=== PATIENT | female | born 1955 | race Caucasian/White ===

== ENCOUNTER 2017-02-22 09:26 | Inpatient (IN) | payer MEDICARE ==
[~2017-02-22] VITALS: Ht 167.6 cm; Wt 101.5 kg
[2017-02-22] VITALS (8 sets, daily range): BP systolic 129–195; BP diastolic 61–81; PULSE 60–68; RESP 16–18; TEMP 97.2; O2SAT 96–99
[~2017-02-22 09:26] MED LIST: AMLO10 PO; ASPI81TA82 PO; CARV3.125 PO; CLOP75 PO; LEVE500 PO; ROSU40 PO; ZANTTAB9 PO
[2017-02-22] MEDS ORDERED: PLAV75TA29 PO (09:32)
[2017-02-22] MEDS ORDERED: LEVE250 PO (09:32)
[2017-02-22] MEDS ORDERED: ROSU40 PO (09:32)
[2017-02-22] MEDS ORDERED: ASPI81CH37 CHEW (09:32)
[2017-02-22] MEDS ORDERED: SODIUM CHLOR 0.9% 1000 ML INJ 1,000 ML IV ONE (09:32)
[2017-02-22] MEDS ORDERED: LEVE500 PO (09:32)
[2017-02-22] MEDS ORDERED: AMLO10 PO (09:32)
[2017-02-22] MEDS ORDERED: CARV3.12 PO (09:32)
[2017-02-22] MEDS ORDERED: RANI1TAB5 PO (09:32)
--- NOTE | 2017-02-22 09:46 | PD ---
HPI Chief Complaint: Stroke Alert Time Seen by Provider: 09:32 Travel History International Travel<30 days: No Contact w/Intl Traveler<30days: No Traveled to known affect area: No History of Present Illness HPI This patient is brought in as a stroke alert. At 9 AM she developed some numbness in the left side of her face. It includes the area of the cheek trending down toward the chin. There is no involvement of the forehead. No muscle weakness anywhere. No sensory loss other than the face and left side of the tongue. She did develop some slowness and slurring of speech but that is significantly improved upon arrival which is approximately half hour after symptoms started. She had a small stroke in 2013 which presented the exact same symptoms including left-sided facial numbness and speech difficulty. She has a minor chronic residual left-sided facial droop from that stroke which is unchanged today. She takes Plavix daily which she took this morning. Symptoms of mild to moderate severity. No alleviating factors. Duration 30 minutes PFSH Past Medical History Arthritis: Yes (R - shoulder) Asthma: No Autoimmune Disease: No Anxiety: Yes Depression: No Heart Rhythm Problems: No Cancer: No Cardiac Catheterization: No Cardiovascular Problems: Yes High Cholesterol: Yes Chest Pain: No Congestive Heart Failure: No COPD: No Cerebrovascular Accident: Yes (Mini stroke October 2014) Coronary Artery Disease: Yes Diabetes: No Endocrine: No Gastrointestinal Disorders: Yes GERD: Yes Genitourinary: Yes Headaches: Yes Hepatitis: No Hiatal Hernia: Yes Hypertension: Yes Immune Disorder: No Implanted Vascular Access Dvce: Yes Kidney Stones: No Medical other: Yes (ARTHRITIS) Musculoskeletal: Yes (Right shoulder fracture) Neurologic: Yes Psychiatric: No Reproductive: No Respiratory: Yes Immunizations Current: Yes Migraines: No Renal Failure: No Seizures: No Sleep Apnea: No Thyroid Disease: No Ulcer: No Menopausal: Yes Past Surgical History Abdominal Surgery: Yes (Gallbladder removed 2006) AICD: No Arteriovenous Shunt: No Body Medical Devices: Cardiac Stent placed by Dr. Shi in 2013 Cardiac Surgery: Yes (Stent placement in May 2014) Cholecystectomy: Yes Coronary Artery Bypass Graft: No Coronary Stent: Yes (BILATERAL ILIAC ARTERY STENT & 05/2014) Ear Surgery: No Endocrine Surgery: No Eye Surgery: No Genitourinary Surgery: No Gynecologic Surgery: Yes (Hysterectomy 2001) Hysterectomy: Yes Insulin Pump: No Joint Replacement: No Oral Surgery: No Pacemaker: No Thoracic Surgery: No Other Surgery: Yes Family History Family Myocardial Infarction: Yes Social History Alcohol Use: Yes (very rare) Tobacco Use: No (QUIT MAY 2007) Substance Use: No Allergies-Medications (Allergen,Severity, Reaction): Coded Allergies: No Known Allergies (Verified , 02/11/15) Reported Meds & Prescriptions Reported Meds & Active Scripts Active Reported Ranitidine 75 (Ranitidine HCl) 75 Mg Tab 75 Mg PO DAILY Take 30 to 60 minutes before eating food or drinking beverages that cause heartburn. Aspirin Low Dose (Aspirin) 81 Mg Chew 81 Mg CHEW DAILY Crestor (Rosuvastatin Calcium) 40 Mg Tab 40 Mg PO DAILY Keppra (Levetiracetam) 500 Mg Tab 500 Mg PO HS Keppra (Levetiracetam) 250 Mg Tab 250 Mg PO MORNING Norvasc (Amlodipine Besylate) 10 Mg Tab 10 Mg PO DAILY Carvedilol 3.125 Mg Tab 3.125 Mg PO BID Plavix (Clopidogrel Bisulfate) 75 Mg Tab 75 Mg PO DAILY Review of Systems General / Constitutional: No: Fever Eyes: No: Visual changes HENT: No: Headaches Cardiovascular: No: Chest Pain or Discomfort Respiratory: No: Shortness of Breath Gastrointestinal: No: Abdominal Pain Genitourinary: No: Dysuria Musculoskeletal: No: Pain Skin: No Rash Neurologic: Positive: Slurred Speech, Sensory Disturbance, No: Weakness Psychiatric: No: Depression Endocrine: No: Polydipsia Hematologic/Lymphatic: No: Easy Bruising Physical Exam Narrative GENERAL: Well-nourished, well-developed patient in no apparent distress. SKIN: Warm and dry. HEAD: Atraumatic. Normocephalic. EYES: Pupils equal and round. No scleral icterus. No injection or drainage. ENT: No nasal bleeding or discharge. Mucous membranes pink and moist. NECK: Trachea midline. No JVD. CARDIOVASCULAR: Regular rate and rhythm. No murmur appreciated. RESPIRATORY: No accessory muscle use. Clear to auscultation. Breath sounds equal bilaterally. GASTROINTESTINAL: Abdomen soft, non-tender, nondistended. Hepatic and splenic margins not palpable. MUSCULOSKELETAL: No obvious deformities. No clubbing. No cyanosis. No edema. NEUROLOGICAL: Awake and alert. No obvious cranial nerve deficits. Motor grossly within normal limits. Speech is not slurred and is understandable but seems to be slowed. There is a very minor subtle left-sided facial droop which the patient reports is chronic. Mental status is normal. She has subjective diminished sensation to sharp and light touch in the left cheek and left chin area. Normal sensation in the extremities. PSYCHIATRIC: Appropriate mood and affect; insight and judgment normal. Data Data Last Documented VS Vital Signs Date Time Temp Pulse Resp B/P Pulse Ox O2 Delivery O2 Flow Rate FiO2 02/22/17 12:00 66 18 154/69 98 Nasal Cannula 2 Orders Diet Npo (02/22/17 Breakfast) Activity Bed Rest (02/22/17 ) Electrocardiogram (02/22/17 ) I-Stat Creatinine (02/22/17 09:32) I-Stat Profile (02/22/17 09:32) Prothrombin Time / Inr (Pt) (02/22/17 09:32) Act Partial Throm Time (Ptt) (02/22/17 09:32) Complete Blood Count With Diff (02/22/17 09:32) Fibrinogen (02/22/17 09:32) Drug Screen, Random Urine (02/22/17 09:32) Ct Brain W/O Iv Contrast(Rout) (02/22/17 ) Cta Brain W Iv Contrast W 3d (02/22/17 09:32) Cta Neck W Iv Contrast W 3d (02/22/17 09:32) Consult Neurology (02/22/17 ) Ecg Monitoring (02/22/17 09:32) Neuro Checks Q2HX12,Q4H (02/22/17 09:32) Nursing Bedside Swallow Assess .ONCE (02/22/17 09:32) Iv Access Insert/Monitor (02/22/17 09:32) NPO (02/22/17 09:32) Oximetry (02/22/17 09:32) Oxygen Administration (02/22/17 09:32) Sodium Chlor 0.9% 1000 Ml Inj (Ns 1000 M (02/22/17 09:32) Resp Oxygen Juan C Titrat 1-4 L (02/22/17 09:32) Iohexol 350 Inj (Omnipaque 350 Inj) (02/22/17 09:58) Dipyridamole-Aspirin 200-25 Mg (Aggrenox (02/22/17 21:00) Aspirin Ec (Ecotrin Ec) (02/23/17 09:00) Acetaminophen (Tylenol) (02/22/17 11:30) Aspirin (Aspirin) (02/22/17 11:30) Heparin Inj (Heparin Inj) (02/22/17 14:00) Eeg Study (02/22/17 ) Mri Brain W/O Contrast (02/22/17 ) Scd Bilateral/Knee High KYLAH.QSHIFT (02/22/17 11:25) Inspector Optical Instrument / Telemetry KYLAH.Q8H (02/22/17 11:25) ^ Fall Precautions (02/22/17 11:25) Neuro Checks . ORDERED (02/22/17 11:25) Consult Pt Eval & Tx Oob (02/22/17 11:25) Echo 2d Comp W/Dopp(Routine) (02/22/17 ) Anti-Thrombin, Functional (02/22/17 11:25) Activated Protein C Resistance (02/22/17 11:25) Factor V (5) Mutation (Leiden) (02/22/17 11:25) Prothrombin [id number] Mutation (02/22/17 11:25) Homocysteine (02/22/17 11:25) Beta-2 Glycoprotein (Gpi) Abs (02/22/17 11:25) Mthr Genotype (02/22/17 11:25) Lupus Anticoagulant Drvvt (02/22/17 11:25) Cardiolipin Abs Igg,Igm,Iga (02/22/17 11:25) Protein C Activity (02/22/17 11:25) Protein S Activity (02/22/17 11:25) Factor Viii (8) Activity Ref (02/22/17 11:25) Phosphatidylserine Abs (02/22/17 11:25) Levetiracetam (02/22/17 11:25) Lipid Profile (02/22/17 11:25) Hemoglobin (Hgb) A1c (02/22/17 11:25) (Hub Use Only)Inp Phy Cons/Ref (02/22/17 ) Diet Heart Healthy (02/22/17 Lunch) Head Of Bed (02/22/17 13:21) ^Bedside Commode (02/22/17 13:21) Admit Order (Ed Use Only) (02/22/17 13:39) Labs Laboratory Tests Test 02/22/17 09:30 White Blood Count 8.1 TH/MM3 Red Blood Count 5.03 MIL/MM3 Hemoglobin 15.1 GM/DL Bedside Hemoglobin 14.6 G/DL Hematocrit 42.8 % Bedside Hematocrit 43.0 % Mean Corpuscular Volume 85.1 FL Mean Corpuscular Hemoglobin 30.0 PG Mean Corpuscular Hemoglobin 35.2 % Concent Red Cell Distribution Width 12.9 % Platelet Count 166 TH/MM3 Mean Platelet Volume 9.5 FL Neutrophils (%) (Auto) 68.8 % Lymphocytes (%) (Auto) 15.7 % Monocytes (%) (Auto) 9.8 % Eosinophils (%) (Auto) 4.7 % Basophils (%) (Auto) 1.0 % Neutrophils # (Auto) 5.6 TH/MM3 Lymphocytes # (Auto) 1.3 TH/MM3 Monocytes # (Auto) 0.8 TH/MM3 Eosinophils # (Auto) 0.4 TH/MM3 Basophils # (Auto) 0.1 TH/MM3 CBC Comment DIFF FINAL Differential Comment Prothrombin Time 9.9 SEC Prothromb Time International 0.9 RATIO Ratio Activated Partial 24.5 SEC Thromboplast Time Fibrinogen 308 mg/dL Bedside Sodium 141 MMOL/L Bedside Potassium 4.3 MMOL/L Bedside Chloride 110 MMOL/L Bedside Blood Urea Nitrogen 18 MG/DL Bedside Creatinine 0.8 MG/DL Bedside Glucose 120 MG/DL [facility] Medical Screen Exam Complete: Yes Emergency Medical Condition: Yes Medical Record Reviewed: Yes Differential Diagnosis Ischemic CVA, hemorrhagic CVA, TIA Narrative Course I have reviewed the patient's electronic medical record. I've initiated stroke alert protocol. I reviewed with the patient's neurologist Brain CT is negative for hemorrhage CT of head and neck are negative for hemodynamically significant blockage CBC normal Metabolic profile normal Coagulation studies are normal Patient is in a sinus rhythm on EKG Extended cardiac monitoring reveals sinus rhythm without ectopy I reviewed in detail with hospitalist will admit with consultation to neurologist Brain MRI has been ordered Patient's blood pressure is 180 systolic and will be observed closely but nontreated given likelihood of acute ischemic stroke Critical Care Narrative Aggregate critical care time was 40 minutes. Time to perform other separately billable procedures was not included in the critical care time. My time did not include minutes spent treating any other patients simultaneously or on activities that did not directly contribute to the patient's treatment. The services I provided to this patient were to treat and/or prevent clinically significant deterioration that could result in: Permanent neurologic disability , brain stem herniation, intracranial hemorrhage I provided critical care services requiring my management, as noted below: Chart data review, documentation time, medication orders and management, vital sign assessments/reviewing monitor data, ordering and reviewing lab tests, ordering and interpreting/reviewing x-rays and diagnostic studies, care of the patient and discussion of the patient with the admitting physicians. Stroke Alert NIHSS NIH Stroke Scale Result: 2 NIHSS Time Completed: 09:30 Thrombolytic Contraindications Contraindications Comment: Patient is not a TPA candidate due to symptoms are rapidly improving, she is already improved within 30 minutes of symptom onset. Neurologist concurs Diagnosis Diagnosis: Primary Impression: Acute ischemic right MCA stroke Admitting Physician Requests: Admit Korey Henry MD Feb 22, 2017 09:46 Korey Henry MD Feb 22, 2017 09:46
[2017-02-22 09:54] LABS: AUTOMATED NEUTROPHIL # 5.6 TH/MM3 (1.8-7.7); BASOPHIL # 0.1 TH/MM3 (0-0.2); EOSINOPHIL # 0.4 TH/MM3 (0-0.4); EOSINOPHIL % 4.7 % (0.0-4.0); HEMATOCRIT 42.8 % (35.0-46.0); HEMO FLAGS DIFF FINAL; I-STAT POTASSIUM 4.3 MMOL/L (3.5-4.9); LYMPH % 15.7 % (9.0-44.0); LYMPHOCYTE # 1.3 TH/MM3 (1.0-4.8); MEAN CELL VOLUME 85.1 FL (80.0-100.0); MEAN CORPUSCULAR HGB CONC 35.2 % (32.0-36.0); MONO % 9.8 % (0.0-8.0); NEUT % 68.8 % (16.0-70.0); PLATELET COUNT 166 TH/MM3 (150-450); RED BLOOD COUNT 5.03 MIL/MM3 (4.00-5.30); RED CELL DISTRIBUTION WIDTH 12.9 % (11.6-17.2); WHITE BLOOD COUNT 8.1 TH/MM3 (4.0-11.0)
[2017-02-22] MEDS ORDERED: IOHEXOL 350 MG/ML 10 ML VIAL (for RAD DIAG) IV ONE (09:58)
--- NOTE | 2017-02-22 10:03 | RADRPT ---
EXAM DATE/TIME: 02/22/2017 09:47 [facility] COMPARISON: CT BRAIN W/O CONTRAST, February 11, 2015, 15:48. INDICATIONS : Stroke alert; left sided facial numbness. RADIATION DOSE: 56.35 CTDIvol (mGy) MEDICAL HISTORY : Stroke. SURGICAL HISTORY : None. ENCOUNTER: Initial ACUITY: 1 day PAIN SCALE: 0/10 LOCATION: cranial TECHNIQUE: Multiple contiguous axial images were obtained of the head. Using automated exposure control and adj ustment of the mA and/or kV according to patient size, radiation dose was kept as low as reasonably a chievable to obtain optimal diagnostic quality images. FINDINGS: CEREBRUM: The ventricles are normal for age. No evidence of midline shift, mass lesion, hemorrhage or acute in farction. No extra-axial fluid collections are seen. POSTERIOR FOSSA: The cerebellum and brainstem are intact. The 4th ventricle is midline. The cerebellopontine angle i s unremarkable. EXTRACRANIAL: The visualized portion of the orbits is intact. SKULL: The calvaria is intact. No evidence of skull fracture. CONCLUSION: Normal exam. Results were relayed to the ER at 10:01 AM. Sierra Zarate MD on February 22, 2017 at 9:57 Board Certified Radiologist. This report was verified electronically.
[2017-02-22 10:05] LABS: APTT (PATIENT) 24.5 SEC (24.3-30.1); INTERNATIONAL NORMALIZED RATIO 0.9 RATIO; PROTHROMBIN TIME - PATIENT 9.9 SEC (9.8-11.6)
--- NOTE | 2017-02-22 10:29 | RADRPT ---
EXAM DATE/TIME: 02/22/2017 09:47 [facility] COMPARISON: CTA BRAIN W 3D RECON, October 30, 2014, 20:44. INDICATIONS : Stroke alert; left sided facial numbness. IV CONTRAST: 60 cc Omnipaque 350 (iohexol) IV ; Cumulative dose for multiple exams. RADIATION DOSE: 15.02 CTDIvol (mGy) ; Combined studies MEDICAL HISTORY : Stroke. SURGICAL HISTORY : None. ENCOUNTER: Initial ACUITY: 1 day PAIN SCALE: 0/10 LOCATION: cranial TECHNIQUE: Volumetric scanning was performed using a multi-row detector CT scanner. The data was post processed with a variety of visualization algorithms including full volume maximum intensity projection, multi -planar sliding thin slab reformation, curved planar reformation, and surface rendering techniques. Using automated exposure control and adjustment of the mA and/or kV according to patient size, radiat ion dose was kept as low as reasonably achievable to obtain optimal diagnostic quality images. FINDINGS: There is excellent visualization of the major intracranial arteries out to the second-order branch ve ssels. There is no evidence for aneurysm, vessel truncation or stenosis, and no evidence for vascula r malformation. The imaged portion of the brain is unremarkable. CONCLUSION: Normal CTA without evidence of thrombosis.. Sierra Zarate MD on February 22, 2017 at 10:25 Board Certified Radiologist. This report was verified electronically.
--- NOTE | 2017-02-22 10:33 | PD.CONS ---
History of Present Illness Service Neurology Consult Requested By er Reason for Consult stroke alert Primary Care Physician Sammi Galloway Jr, MD History of Present Illness 61-year-old female presents to er as a stroke alert. was doing laundry when suddenly her left face became numb and her speech became more thick. she felt her tongue was heavy. this has improved and she is minimal tingling on her left face. no limb involvement. no shaking. she is able to converse. we discussed iv tpa and both agree that based on her minimal symptoms, this tx shoudl be deferred. she is on plavix. on keppra as well and has been compliant with medications. bp 1195/81. had small rt cortical stroke 10/2014. ct brain negative. glucose 120 Past Family Social History Past Medical History Hypertension Hyperlipidemia CADstatus post LAD stent on 06/07/14. EF 60% on angiogram Severe PADstatus post bilateral iliac artery stents in 2006 Osteoarthritis GERD Recent fall on 07/08/14 with right shoulder and right ankle sprain Past Surgical History Right shoulder surgery next line carpal tunnel surgery Hysterectomy Cholecystectomy Bilateral iliac artery stenting Coronary angiogram and stenting Reported Medications Patient's medications listed in EMR reviewed. Allergies: Coded Allergies: No Known Allergies (Verified , 07/27/14) Social History Reports long-standing history of tobacco use. She states she quit in 2006. Denies any alcohol abuse or drug abuse. Review of Systems as per med/er hp Review of Systems Constitutional: Negative Eye: Negative Respiratory: Negative Cardiovascular: Negative Gastrointestinal: Negative Psychiatric: Negative All other ROS: ROS reviewed as documented in chart Past Family Social History Allergies: Coded Allergies: No Known Allergies (Verified , 02/11/15) Active Ordered Medications Current Medications Medications (Trade) Dose Ordered Sig/Pankaj Route Start Time Stop Time Status Last Admin (NS 1000 ml Inj) 1,000 ml @ 70 mls/hr [id number] ONCE IV 02/22/17 09:32 02/22/17 23:49 02/22/17 09:55 Exam I&O / VS Vital Signs Date Time Temp Pulse Resp B/P Pulse Ox O2 Delivery O2 Flow Rate FiO2 02/22/17 09:48 97 Nasal Cannula 2 02/22/17 09:30 98 Nasal Cannula 4.00 02/22/17 09:30 98 4.00 02/22/17 09:27 68 16 195/81 97 General: Alert and Oriented, No acute distress Eye: PERRL, EOMI Respiratory: Lungs CTA Cardiology: Normal rate Musculoskeletal: ROM Neurologic: Alert, Oriented, Normal motor, Gag reflex normal, Normal DTR's Psychiatric: Cooperative, Appropriate mood & affect, Normal judgement Exam Comments alert, ox 3. clear speech, follows. eomi, vff, no ptosis, tongue midline, mild reduced pin v2,3 on left compared to rt. minimal reduced left nlf on left compared to rt, but may be residual from previous stroke, no motor weakness, no drift, no limb sensory symptoms, no neglect, nihss 1 Review/Management Diagnosis/Plan: (1) TIA (transient ischemic attack) Plan: possible recurrent rt mca tia; ? 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
--- NOTE | 2017-02-22 10:48 | RADRPT ---
EXAM DATE/TIME: 02/22/2017 09:47 [facility] COMPARISON: CTA CAROTID ARTERIES W 3D RECON, October 30, 2014, 20:44. INDICATIONS : Stroke alert; left sided facial numbness. IV CONTRAST: 60 cc Omnipaque 350 (iohexol) IV ; Cumulative dose for multiple exams. RADIATION DOSE: 15.02 CTDIvol (mGy) ; Combined studies MEDICAL HISTORY : Stroke. SURGICAL HISTORY : None. ENCOUNTER: Initial ACUITY: 1 day PAIN SCALE: 0/10 LOCATION: Bilateral neck Elevated flow velocities and ICA/CCA ratios have been found to correlate with increased degrees of vessel stenosis, calculated as percentage of diameter relative to a normal segment of distal ICA/CCA. TECHNIQUE: Volumetric scanning was performed using a multirow detector CT scanner. The data was post processed with a variety of visualization algorithms including full-volume maximum intensity projection, multip lanar sliding thin-slab reformation, curved-planar reformation, and surface-rendering techniques. Us ing automated exposure control and adjustment of the mA and/or kV according to patient size, radiatio n dose was kept as low as reasonably achievable to obtain optimal diagnostic quality images. FINDINGS: AORTIC ARCH: There is a 4-vessel origin of the great vessels from the aorta with the left vertebral artery also ar ising from the aorta. There is atherosclerotic calcified plaque present at the origin of the great ve ssels without evidence of significant ostial narrowing. RIGHT CAROTID: The common carotid artery is intact. The carotid bulb has a normal configuration without significant ulceration or narrowing. The internal carotid artery lumen is smooth without stenosis. The external carotid artery is intact. LEFT CAROTID: The common carotid artery is intact. The carotid bulb has a normal configuration without significant ulceration or narrowing. The internal carotid artery lumen is smooth without stenosis. The externa l carotid artery is intact. VERTEBRALS: The vertebral arteries have a symmetric diameter. No stenotic lesions are seen. CONCLUSION: There is a 4 vessel present with the left vertebral artery arising from the aortic arch. There is ath erosclerotic plaque identified at the origins of the great vessels without evidence of significant na rrowing. Calcified plaque is also noted at the bilateral carotid artery bifurcation without evidence of significant narrowing. The vasculature demonstrates otherwise normal caliber without evidence of s tenosis or dissection.. Sierra Zarate MD on February 22, 2017 at 10:42 Board Certified Radiologist. This report was verified electronically.
[2017-02-22] MEDS ORDERED: ASPIRIN 325 MG TAB PO SCH (11:30)
[2017-02-22] MEDS: ACETAMINOPHEN 500 MG CPLT PO SCH ×2 (12:56→21:01)
--- NOTE | 2017-02-22 13:49 | RADRPT ---
EXAM DATE/TIME: 02/22/2017 13:20 [facility] COMPARISON: MRI BRAIN W/O CONTRAST, February 11, 2015, 16:49. INDICATIONS : CVA. Stroke alert; left sided facial numbness. MEDICAL HISTORY : Hypertension. SURGICAL HISTORY : Cholecystectomy. Hysterectomy. Carpal tunnel syndrome. ENCOUNTER: Initial ACUITY: 1 day PAIN SCORE: 0/10 LOCATION: cranial TECHNIQUE: Multiplanar, multisequence MRI of the brain was performed without contrast. FINDINGS: CEREBRUM: The ventricles are normal for age. No evidence of midline shift, mass lesion, hemorrhage or acute in farction. No extraaxial fluid collections are seen. The pituitary gland and suprasellar cistern are normal in configuration. WHITE MATTER: Stable foci of increased T2 signal identified within the white matter of the centrum semiovale bilate rally. These are nonspecific and not related to acute infarct. POSTERIOR FOSSA: The cerebellum and brainstem are intact. The 4th ventricle is midline. The cerebellopontine angle is unremarkable. The cerebellar tonsils are normal in position. DIFFUSION IMAGING: No focal areas of restricted diffusion are seen. No evidence of acute infarction. EXTRACRANIAL: The visualized portions of the orbits and paranasal sinuses are unremarkable. CONCLUSION: No acute disease. Sierra Zarate MD on February 22, 2017 at 13:45 Board Certified Radiologist. This report was verified electronically.
--- NOTE | 2017-02-22 14:55 | HHI.HP ---
HPI Service [facility] Hospitalists Primary Care Physician Sammi Galloway Jr, MD Admission Diagnosis tia Chief Complaint: dysarthria Travel History International Travel<30 Days: No Contact w/Intl Traveler <30 Da: No Traveled to Known Affected Are: No History of Present Illness Pt presents with dysarthria and c/o left facial parasthesia while doing her laundry. Similar events occured 2 yrs ago and she also had facial droop per pt. she has been on asa/ plavix for presumed tia. She was seen today by neurology for concern of right mca stroke sx's but no tpa ordered as her symptoms were resolving in ED. no focal limb weakness. no cp or sob. imaging in ED negative for stroke or significant vessel occlusion. Review of Systems Other left face parasthesia dysarthria Past Family Social History Past Medical History CADs lad stent 2013 tia PAD with jorge iliac stents oa htn hyperlipidemia GERD Right shoulder surgery/impingement Hysterectomy Cholecystectomy Bilateral iliac artery stenting Reported Medications Ranitidine 75 (Ranitidine HCl) 75 Mg Tab 75 Mg PO DAILY Take 30 to 60 minutes before eating food or drinking beverages that cause heartburn. Aspirin Low Dose (Aspirin) 81 Mg Chew 81 Mg CHEW DAILY Crestor (Rosuvastatin Calcium) 40 Mg Tab 40 Mg PO DAILY Keppra (Levetiracetam) 500 Mg Tab 500 Mg PO HS Keppra (Levetiracetam) 250 Mg Tab 250 Mg PO MORNING Norvasc (Amlodipine Besylate) 10 Mg Tab 10 Mg PO DAILY Carvedilol 3.125 Mg Tab 3.125 Mg PO BID Allergies: Coded Allergies: No Known Allergies (Verified , 02/11/15) Family History nc Social History no etoh stopped using 2ppd tob 2006 Physical Exam Vital Signs oriented distant turbulence to flows sounds jorge carotids heart reg lung abd s/nt ext no edema neuro. no focal limb weakness no facial droop. no dysarthria Vital Signs Date Time Temp Pulse Resp B/P Pulse Ox O2 Delivery O2 Flow Rate FiO2 02/22/17 14:11 18 02/22/17 13:08 61 18 157/71 97 Nasal Cannula 2 02/22/17 12:00 66 18 154/69 98 Nasal Cannula 2 02/22/17 11:05 60 18 165/69 99 Nasal Cannula 2 02/22/17 09:48 97 Nasal Cannula 2 02/22/17 09:30 98 Nasal Cannula 4.00 02/22/17 09:30 98 4.00 02/22/17 09:27 68 16 195/81 97 Laboratory Laboratory Tests Test 02/22/17 09:30 White Blood Count 8.1 Red Blood Count 5.03 Hemoglobin 15.1 Bedside Hemoglobin 14.6 Hematocrit 42.8 Bedside Hematocrit 43.0 Mean Corpuscular Volume 85.1 Mean Corpuscular Hemoglobin 30.0 Mean Corpuscular Hemoglobin 35.2 Concent Red Cell Distribution Width 12.9 Platelet Count 166 Mean Platelet Volume 9.5 Neutrophils (%) (Auto) 68.8 Lymphocytes (%) (Auto) 15.7 Monocytes (%) (Auto) 9.8 Eosinophils (%) (Auto) 4.7 Basophils (%) (Auto) 1.0 Neutrophils # (Auto) 5.6 Lymphocytes # (Auto) 1.3 Monocytes # (Auto) 0.8 Eosinophils # (Auto) 0.4 Basophils # (Auto) 0.1 CBC Comment DIFF FINAL Differential Comment Prothrombin Time 9.9 Prothromb Time International 0.9 Ratio Activated Partial 24.5 Thromboplast Time Fibrinogen 308 Bedside Sodium 141 Bedside Potassium 4.3 Bedside Chloride 110 Bedside Blood Urea Nitrogen 18 Bedside Creatinine 0.8 Bedside Glucose 120 Result Diagram: 02/22/17 0930 Assessment and Plan Problem List: (1) TIA (transient ischemic attack) Status: Acute Plan: Pt presented with left face parasthesias and dysarthria. similar sx's 2 yrs ago. She is felt to have TIA and her sx's are resolving. so far ct and mri imagin show no infarcts or vessel occlusion. discussed with dr Scott observe overnight hob flat ok to treat htn convert plavix to aggrenox he ordered hypercoag panel and will f/u office. if stable then d/c tomorrow telementry. holter in past neg for afib (2) Hypertension Status: Chronic (3) CAD (coronary artery disease) Status: Chronic (4) PAD (peripheral artery disease) Status: Chronic Physician Certification 2 Midnight Certification Type: Admission for Inpatient Services Order for Inpatient Services 2The services are ordered in accordance with Medicare regulations or non- Medicare payer requirements, as applicable. In the case of services not specified as inpatient-only, they are appropriately provided as inpatient services in accordance with the 2-midnight benchmark. Estimated LOS (days): 2 2 days is the estimated time the patient will need to remain in the hospital, assuming treatment plan goals are met and no additional complications. Post-Hospital Plan: Home Problem Qualifiers (1) TIA (transient ischemic attack): Qualified Code: G45.9 - Transient cerebral ischemia, unspecified type (2) Hypertension: Qualified Code: I10 - Essential hypertension Jonathan Pepe MD Feb 22, 2017 14:54
[2017-02-22] MEDS ORDERED: cloNIDine HCL 0.1 MG TAB PO PRN (15:00)
[2017-02-22] MEDS: HEPARIN SODIUM - SQ 10,000 UNITS/ML VIAL SQ SCH ×3 (16:18→21:06)
--- NOTE | 2017-02-22 16:23 | EKG ---
Date Performed: 02/22/2017 Time Performed: 10:10:31 PTAGE: 61 years EKG: SINUS BRADYCARDIA Since previous tracing, no significant change noted BORDERLINE ECG PREVIOUS TRACING : 02/11/2015 15.59 DOCTOR: Lenny Harper Interpretating Date/Time 02/22/2017 16:22:14
[2017-02-22 19:56] LABS: LDL CHOLESTEROL 54 MG/DL (0-99)
[2017-02-22] MEDS ORDERED: levETIRAcetam 500 MG TAB PO SCH (21:00)
[2017-02-22] MEDS: DIPYRIDAMOLE/ASPIRIN 200 MG/25 MG CAP PO SCH (21:00)
[2017-02-22] MEDS: CARVEDILOL 3.125 MG TAB PO SCH (21:01)
[2017-02-22 23:05] LABS: AMPHETAMINE, URINE NEG (NEG); BARBITURATES, URINE NEG (NEG); COCAINE, URINE NEG (NEG)
[2017-02-23 00:40] VITALS: BP 150/72; PULSE 64; RESP 18; TEMP 98.8; O2SAT 97
--- NOTE | 2017-02-23 04:13 | MG ---
cc: MARIANNE PANDA MD Sex: F DATE OF STUDY: 02/22/2017 [id number] DATE OF : 1955 HISTORY: 61 year-old female, slurred speech, left facial numbness, previous history of stroke. Posterior rhythm demonstrates 8-9 Hz activity, 10-30 microvolts low amplitude in beta and frontal channels. At times sharp transient T4, epoch 91. Attenuation shows mild slowing suggestive of drowsy state. Reasonable driving with photic stimulation. Single EKG showing sinus rhythm. INTERPRETATION Normal awake drowsy EEG. Clinical correlation. Marianne Panda MD MG/WILY /10:59 PM /3:51 AM
[2017-02-23 06:00] VITALS: BP 134/63; PULSE 62; RESP 16; TEMP 97.2; O2SAT 96
[2017-02-23] MEDS: HEPARIN SODIUM - SQ 10,000 UNITS/ML VIAL SQ SCH (06:00)
[2017-02-23 08:12] VITALS: BP 145/61; PULSE 63; RESP 17; TEMP 97.5; O2SAT 97
[2017-02-23] MEDS: ACETAMINOPHEN 500 MG CPLT PO SCH (08:41)
[2017-02-23] MEDS: CARVEDILOL 3.125 MG TAB PO SCH (08:41)
[2017-02-23] MEDS: DIPYRIDAMOLE/ASPIRIN 200 MG/25 MG CAP PO SCH (08:41)
[2017-02-23] MEDS ORDERED: levETIRAcetam 250 MG TAB PO SCH (09:00)
[2017-02-23] MEDS ORDERED: FAMOTIDINE 20 MG TAB PO SCH (09:00)
[2017-02-23] MEDS ORDERED: ASPIRIN EC 81 MG TABEC PO SCH (09:00)
[2017-02-23] MEDS ORDERED: ATORVASTATIN 80 MG TAB PO SCH (09:00)
--- NOTE | 2017-02-23 10:24 | HHI.PR ---
Review/Management Diagnosis/Plan: (1) TIA (transient ischemic attack) Plan: possible recurrent rt mca tia; ? 2/[address] brain stable; cta brain stable recs mri brain - no acute stroke cta brain/carotid- calcific dz but no significant stenosis continue aggrenox bid + aspirin 81mg p.t./tele d/c planning today; f/u with us in 3-4 weeks; reviewed mri/cta's with pt/spouse f/u hypercoag panel if left face continues to stay numb she will contact us and may repeat a mri brain thin cuts brainstem (2) Chronic right arterial ischemic stroke, MCA (middle cerebral artery) (3) Seizure Plan: on keppra eeg stable (4) Hypertension (5) Dyslipidemia Subjective Subjective Comments No acute events reported No headache; mild left facial numbness persists; she noticed a little drool out of the left corner of her mouth No chest pain No dyspnea Active Medications Current Medications Medications (Trade) Dose Ordered Sig/Pankaj Route Start Time Stop Time Status Last Admin (Aggrenox 200-25 Mg) 1 cap BID PO 02/22/17 21:00 02/23/17 08:41 (Ecotrin Ec) 81 mg DAILY PO 02/23/17 09:00 02/23/17 08:41 (Tylenol) 500 mg BID PO 02/22/17 11:30 02/23/17 08:41 (Heparin Inj) 5,000 units Q8HR SQ 02/22/17 14:00 02/22/17 16:18 (Norvasc) 10 mg DAILY PO 02/23/17 09:00 02/23/17 08:41 (Coreg) 3.125 mg BID PO 02/22/17 21:00 02/23/17 08:41 (Keppra) 250 mg DAILY PO 02/23/17 09:00 02/23/17 08:41 (Keppra) 500 mg HS PO 02/22/17 21:00 02/22/17 21:01 (Pepcid) 20 mg BID PO 02/23/17 09:00 02/23/17 08:41 (Lipitor) 80 mg DAILY PO 02/23/17 09:00 02/23/17 09:11 (Catapres) 0.1 mg Q4H PRN PO 02/22/17 15:00 Allergies Allergies Coded Allergies No Known Allergies (Verified02/11/15) Review of Systems Constitutional: Negative Eye: Negative Respiratory: Negative Cardiovascular: Negative Gastrointestinal: Negative Psychiatric: Negative All other ROS: ROS reviewed as documented in chart Exam I&O / VS 02/22/17 02/22/17 02/23/17 15:00 23:00 07:00 Intake Total 300 ml 925 ml Balance 300 ml 925 ml Intake Oral 300 ml 925 ml # Voids 2 5 # Bowel Movements 0 1 Vital Signs Date Time Temp Pulse Resp B/P Pulse Ox O2 Delivery O2 Flow Rate FiO2 02/23/17 08:12 97.5 63 17 145/61 97 02/23/17 06:00 97.2 62 16 134/63 96 02/23/17 00:40 98.8 64 18 150/72 97 02/22/17 22:01 15 02/22/17 20:45 97.2 60 17 158/72 96 02/22/17 17:28 65 18 131/75 99 Room Air 02/22/17 16:19 65 18 129/61 98 Room Air 2 02/22/17 13:08 61 18 157/71 97 Nasal Cannula 2 02/22/17 12:00 66 18 154/69 98 Nasal Cannula 2 02/22/17 11:05 60 18 165/69 99 Nasal Cannula 2 General: Alert and Oriented, No acute distress Eye: PERRL, EOMI Respiratory: Lungs CTA Cardiology: Normal rate Musculoskeletal: ROM Neurologic: Alert, Oriented, Normal motor, Gag reflex normal, Normal DTR's Psychiatric: Cooperative, Appropriate mood & affect, Normal judgement Exam Comments alert, ox 3. clear speech, follows. eomi, vff, no ptosis, tongue midline, mild reduced pin v2,3 on left compared to rt. minimal reduced left nlf on left compared to rt, but may be residual from previous stroke, no motor weakness, no drift, no limb sensory symptoms, no neglect Objective Micro and Labs Laboratory Tests Test 02/22/17 22:10 Urine Opiates Screen NEG Urine Barbiturates Screen NEG Urine Amphetamines Screen NEG Urine Benzodiazepines Screen NEG Urine Cocaine Screen NEG Urine Cannabinoids Screen NEG Problem Qualifiers (1) TIA (transient ischemic attack): Qualified Code: G45.9 - Transient cerebral ischemia, unspecified type (2) Hypertension: Qualified Code: I10 - Essential hypertension Walter Scott MD Feb 23, 2017 10:24
[2017-02-23 10:46] VITALS: O2SAT 99
--- NOTE | 2017-02-23 11:11 | HHI.PR ---
Subjective Remarks sx's resolved except small area of numbness on left mouth corner of cheek Objective Vitals no facial droop ambulating nad no focal limb weakness heart reg lung cta abd /snt ext no edema Vital Signs Date Time Temp Pulse Resp B/P Pulse Ox O2 Delivery O2 Flow Rate FiO2 02/23/17 10:46 99 21 02/23/17 08:12 97.5 63 17 145/61 97 02/23/17 06:00 97.2 62 16 134/63 96 02/23/17 00:40 98.8 64 18 150/72 97 02/22/17 22:01 15 02/22/17 20:45 97.2 60 17 158/72 96 02/22/17 17:28 65 18 131/75 99 Room Air 02/22/17 16:19 65 18 129/61 98 Room Air 2 02/22/17 13:08 61 18 157/71 97 Nasal Cannula 2 02/22/17 12:00 66 18 154/69 98 Nasal Cannula 2 02/22/17 02/22/17 02/23/17 15:00 23:00 07:00 Intake Total 300 ml 925 ml Balance 300 ml 925 ml Intake Oral 300 ml 925 ml # Voids 2 5 # Bowel Movements 0 1 Result Diagram: 02/22/17 0930 A/P Problem List: (1) TIA (transient ischemic attack) Status: Acute Plan: Pt presents with left face parasthesia and dysarthria. similar to 2 yrs ago admitted for TIA..sx's essentially resolved aside from mild area of numbness on left cheek. no infarct or vessel occlusion on imaging. seen by her neurologist cont asa and change plavix to aggrenox f/u neurology for pending hypercoag panel. d/c home today and pt eager to go home. (2) CAD (coronary artery disease) Status: Chronic (3) PAD (peripheral artery disease) Status: Chronic (4) Hypertension Status: Chronic Problem Qualifiers (1) TIA (transient ischemic attack): Qualified Code: G45.9 - Transient cerebral ischemia, unspecified type (2) Hypertension: Qualified Code: I10 - Essential hypertension Jonathan Pepe MD Feb 23, 2017 11:11
[2017-02-23] MEDS ORDERED: AGGR20025 PO (11:13)
--- NOTE | 2017-02-23 11:13 | HHI.DCPOC ---
Discharge Care Plan Diagnosis: (1) TIA (transient ischemic attack) Goals to Promote Your Health * To prevent worsening of your condition and complications * To maintain your health at the optimal level Directions to Meet Your Goals Take your medications as prescribed Follow your dietary instruction Follow activity as directed Keep your appointments as scheduled Take your immunizations and boosters as scheduled If your symptoms worsen call your PCP, if no PCP go to Urgent Care Center or Emergency Room Smoking is Dangerous to Your Health. Avoid second hand smoke Call the 24-hour hour crisis hotline for domestic abuse at Jonathan Pepe MD Feb 23, 2017 11:13
[2017-02-23 14:33] LABS: HEMOGLOBIN A1a 1.1 %; HEMOGLOBIN A1b 1.1 %; HEMOGLOBIN Ao 84.8 %; HEMOGLOBIN F 0.9 %; HEMOGLOBIN LA1C 1.7 %; HEMOGLOBIN P3 3.9 %
[2017-02-27 03:50] LABS: THROMBIN TIME FOR LA ND sec (13-19)
[2017-02-28 23:51] LABS: PHOSPHATIDYLSERINE AB IGA LESS THAN 20.0 U/mL (()); PHOSPHATIDYLSERINE AB IGM LESS THAN 25.0 U/mL (())
== END 2017-02-23 13:48 | disposition home or self-care (01) | DRG 69 ==
LOC: NEPE 09:26 → NEDA 13:42 → N05A 18:31
PROVIDERS: ADMIT Hospitalist; ATTEND Hospitalist
DX: G45.9 Transient cerebral ischemic attack, unspecified (principal); I10 Essential (primary) hypertension; I25.10 Atherosclerotic heart disease of native coronary artery without angina pectoris; I73.9 Peripheral vascular disease, unspecified; K21.9 Gastro-esophageal reflux disease without esophagitis; E78.5 Hyperlipidemia, unspecified; Z87.891 Personal history of nicotine dependence; Z95.5 Presence of coronary angioplasty implant and graft; I69.392 Facial weakness following cerebral infarction; Z79.02 Long term (current) use of antithrombotics/antiplatelets
CPT/HCPCS: 70450; 70496; 70498; 70551; 80061; 80177; 80307; 81240; 81241; 81291; 82435; 82565; 82947; 83036; 83090; 84132; 84295; 84520; 85025; 85240; 85300; 85303; 85306; 85307; 85384; 85610; 85613; 85730; 86146; 86147; 86148; 93005; 95819; 96360; 96361; J1644; J7030; Q9967

== ENCOUNTER → 2017-07-21 | Day surgery (SDC) | payer MEDICARE ==
[~2017-07-21] MED LIST changes: +AGGR20025 PO; +ASPI81CH37 CHEW; -ASPI81TA82 PO; +CARV3.12 PO; -CARV3.125 PO; -CLOP75 PO; +LEVE250 PO; +PROPOFOL 100 MG/10 ML INJ IV ONE; +RANI1TAB5 PO; -ZANTTAB9 PO
--- NOTE | 2017-07-21 12:17 | GIPROC ---
[facility] [address], [address] EGD PROCEDURE REPORT EXAM DATE: 07/21/2017 PATIENT NAME: Meng Diamond MR #: [id number] BIRTHDATE: 1955 ATTENDING: Nena Deleon MD ORDER #: [id number] DEPARTMENT SALES MANAGER: Ariana Cherry [employer]LECT[employer]IC [employer]ER INSTALLER HELPER STATUS: outpatient INDICATIONS: The patient is a 62 yr old female here for an EGD due to history of esophageal reflux and epigastric abdominal pain PROCEDURE PERFORMED: EGD, diagnostic MEDICATIONS: None and Per Anesthesia. TOPICAL ANESTHETIC: CONSENT: The patient understands the risks and benefits of the procedure and understands that these risks include, but are not limited to: sedation, allergic reaction, infection, perforation and/or bleeding. Alternative means of evaluation and treatment include, among others: physical exam, x-rays, and/or surgical intervention. The patient elects to proceed with this endoscopic procedure. medical equipment was checked for proper function. Hand hygiene and appropriate measures for infection prevention was taken. After the risks, benefits and alternatives of the procedure were thoroughly explained, Informed consent was verified, confirmed and timeout was successfully executed by the treatment team. The patient was anesthetized with topical anesthesia and the EG-[id number] ([id number]) endoscope was introduced through the mouth and advanced to the second portion of the duodenum. Retroflexed views revealed a hiatal hernia and Retroflexed views revealed The gastroscope was then slowly withdrawn and removed. ESOPHAGUS: The mucosa of the esophagus appeared normal. STOMACH: There was erythematous moderate gastritis in the gastric antrum. DUODENUM: The duodenal mucosa appeared normal in the bulb and second portion of the duodenum. ADVERSE EVENTS: There were no complications. IMPRESSIONS: 1. The esophagus appeared normal 2. There was erythematous gastritis in the gastric antrum 3. Normal duodenal mucosa in the bulb and second portion of the duodenum 4. Retroflexed views revealed a hiatal hernia 5. Retroflexed views revealed RECOMMENDATIONS: 1. Anti-reflux regimen 2. Continue PPI 3. Avoid NSAIDS PATIENT CONDITION: stable DISPOSITION: Home REPEAT EXAM: Return 1 year EGD Nena Deleon MD eSigned: Nena Deleon MD 07/21/2017 12:16 PM cc: Tho Dumont [facility] Kat Claudio M.D. PATIENT NAME: Meng Diamond MR#: [id number]
== END | disposition home or self-care (01) ==
LOC: ESDC 09:24
PROVIDERS: ATTEND Internal Medicine Gastroenterology
DX: K21.9 Gastro-esophageal reflux disease without esophagitis (principal); R10.13 Epigastric pain; K29.70 Gastritis, unspecified, without bleeding; K44.9 Diaphragmatic hernia without obstruction or gangrene